=== PATIENT | female | born 1980 | race Asian ===

== ENCOUNTER 2025-01-27 15:40 | Emergency (ER) | payer OTHER ==
[~2025-01-27] VITALS: Ht 165.1 cm; Wt 63.5 kg
[2025-01-27 15:43] VITALS: BP 108/73; PULSE 94; RESP 18; TEMP 98.2
--- NOTE | 2025-01-27 17:10 | NUR ---
CALLED PT MULTIPLE TIMES IN LOBBY, NO ANSWER.
[2025-01-28] MEDS ORDERED: IBUP-1492 PO (00:39)
[2025-01-28] MEDS ORDERED: AMOX1TAB16 PO (00:39)
== END 2025-01-27 17:11 | disposition left against medical advice (07) ==
LOC: EDH 15:40
DX: R10.32 Left lower quadrant pain (principal); R50.9 Fever, unspecified; Z53.21 Procedure and treatment not carried out due to patient leaving prior to being seen by health care provider
CPT/HCPCS: 99281

== ENCOUNTER 2025-01-27 19:46 | Emergency (ER) | payer OTHER ==
[~2025-01-27] VITALS: Ht 165.1 cm; Wt 63.0 kg
--- NOTE | 2025-01-27 20:13 | NUR ---
PT CARE ASSUMED AT THIS TIME
[2025-01-27 20:28] LABS: APPEARANCE,URINE CLEAR (CLEAR); GLUCOSE, URINE (UA) NEGATIVE (NEGATIVE); LEUKOCYTE ESTERASE ,URINE NEGATIVE Leu/uL (NEGATIVE); NITRATE,URINE NEGATIVE (NEGATIVE); OCCULT BLOOD,URINE SMALL (NEGATIVE)
[2025-01-27 20:29] LABS: ADD UA MICROSCOPIC YES
[2025-01-27 20:33] LABS: IMMATURE GRANULOCYTE ABSOLUTE 0.04 K/uL (0-1); NUCLEATED RED BLOOD CELLS 0.0 % (0.0-0.19); PLATELET COUNT (AUTO) 308 K/uL (130-400); RED BLOOD CELL COUNT(AUTO) 3.99 MIL/uL (4.00-5.50); RED CELL DISTRIBUTION WIDTH 12.2 % (11.0-15.5); WHITE BLOOD COUNT (AUTO) 11.8 K/uL (4.8-10.8)
[2025-01-27 20:41] LABS: CREATININE 0.6 mg/dL (0.5-1.0); GLOMERULAR FILTR. RATE CALC 113.0 mL/min (>90); GLUCOSE,RANDOM 86.0 mg/dL (70-105); SODIUM SERUM 135.0 mmol/L (136-145); UREA NITROGEN, BLOOD 9.0 mg/dL (7-18)
--- NOTE | 2025-01-27 20:46 | NUR ---
PEGGY DEWEY NOTIFIED ABOUT PT'S REQUEST TO HOLD OFF ON CT SCAN FOR LAB RESULTS TO RESULT.
[2025-01-27] MEDS ORDERED: IOHEXOL-350 75 ML VIAL IV ONE (22:31)
--- NOTE | 2025-01-28 00:08 | HMCIMG ---
EXAM: CT Abdomen and Pelvis with IV contrast. CLINICAL HISTORY: Abdominal pain. TECHNIQUE: Axial computed tomography images of the abdomen and pelvis with intravenous contrast. COMPARISON: None provided. FINDINGS: LUNG BASES: The lung bases appear clear. No pleural effusions are seen. LIVER: Multiple well-defined hypodense cysts with diffuse distribution in both lobes of the liver, the largest measuring 0.7 x 0.7 cm in the segment of the liver GALLBLADDER AND BILE DUCTS: The gallbladder appears within normal limits. No radioopaque gallstones are seen. No biliary ductal dilatation is evident. PANCREAS: Unremarkable. SPLEEN: Unremarkable. ADRENAL GLANDS: Unremarkable. KIDNEYS, URETERS, AND BLADDER: The kidneys appear within normal limits. There is no hydronephrosis or hydroureter. No urinary calculi are seen. STOMACH AND BOWEL: Unremarkable appearance of the stomach. Colonic diverticulosis. Focal short segment enhancing wall thickening measuring 1.3 cm in wall thickness of the distal descending colon with mild surrounding fat stranding. APPENDIX: No evidence of acute appendicitis on CT examination. PERITONEUM: No free fluid. No free air. LYMPH NODES: No lymphadenopathy is evident. REPRODUCTIVE: Unremarkable as visualized. VASCULATURE: No evidence of abdominal aortic aneurysm. BONES: No aggressive appearing osseous lesion. No acute osseous pathology is evident. IMPRESSION: Focal short-segment enhancing wall thickening of the distal descending colon with peridiverticular fat stranding. Imaging features consistent with acute diverticulitis. However, underlying neoplastic etiology needs to be ruled out. Suggested clinical and scopy correlation. Colonic diverticulosis. Multiple small hepatic cysts. /[place]
[2025-01-28] MEDS ORDERED: IBUP-1492 PO (00:39)
[2025-01-28] MEDS ORDERED: AMOX1TAB16 PO (00:39)
--- NOTE | 2025-01-28 00:39 | ERN ---
ED Note History of Present Illness Stated Complaint: C/O ABD PAIN X 2 DAYS Chief Complaint: Abdominal Pain Time Seen by MD: 19:50 Dictation: 44-year-old female presents to ER complaints of left upper and lower abdominal pain x2 days. Patient states has mild nausea feels fatigued and malaise. Denies chest pain shortness of breath or fever Allergies: Coded Allergies: No Known Drug Allergies (Unverified Allergy, Unknown, 01/27/25) Home Meds Active Scripts Ibuprofen (Ibuprofen) 600 Mg Tablet, 600 MG PO Q6H PRN for PAIN, #20 TAB Prov:LENNY DEWEY [facility] 01/28/25 Amoxicillin/Potassium Clav (Amox Tr-K Clv 875-125 mg Tab) 875 Mg-125 Mg Tablet, 1 EACH PO BID for 10 Days, #20 TAB 0 Refills Prov:LENNY DEWEY [facility] 01/28/25 Past Medical History Past Medical History: No Pertinent History Additional Past Medical Hx: CHRONIC BACK PAIN Surgical History: None LMP: Jan 18, 2025 : 0 Review of System Dictation CONSTITUTIONAL: NEGATIVE FOR FEVER,CHILLS, AND WEIGHT LOSS EYES: NEGATIVE FOR INJURY, PAIN,REDNESS, AND DISCHARGE ENT: NEGATIVE FOR INJURY,PAIN OR SWELLING CARDIOVASCULAR: NEGATIVE FOR CHEST PAIN, PALPITATIONS, AND EDEMA RESPIRATORY: NEGATIVE FOR SHORTNESS OF BREATH, COUGH, WHEEZING, AND PLEURITIC CHEST PAIN ABDOMEN/GI: Positive abdominal pain, nausea BACK: NEGATIVE FOR PAIN OR INJURY : NEGATIVE FOR INJURY, BLEEDING AND DISCHARGE MS/EXTREMITY: NEGATIVE FOR INJURY AND DEFORMITY SKIN: NEGATIVE FOR RASH, AND DISCOLORATION NEURO: NEGATIVE FOR HEADACHE, WEAKNESS, NUMBNESS, TINGLING, AND SEIZURE PSYCH: NEGATIVE FOR SUICIDE IDEATION, HOMICIDAL IDEATION, AND HALLUCINATIONS ALLERGY/IMMUNOLOGY: NEGATIVE FOR HIVES, RASH, AND ALLERGIES ALL SYSTEMS NEGATIVE, EXCEPT NOTED ABOVE. 13 POINT REVIEW OF SYSTEMS ASSESSED AND ALL NEGATIVE EXCEPT FOR ABOVE. Initial Vital Sign VS Vital Signs Date Time Temp Pulse Resp B/P (MAP) Pulse Ox O2 Delivery O2 Flow Rate FiO2 01/27/25 19:48 99.0 88 20 166/77 100 Room Air 01/27/25 20:51 0 21 Physical Exam Dictation General: awake, alert, NAD Head/Face: Normocephalic, atraumatic Eyes: PERRL, EOMI, vision at baseline ENT: oral cavity clear, TMs clear, no signs of infection Neck: Trachea midline, supple, no nuchal rigidity Cardiovascular: RRR, normal no JVD Respiratory: CTAB, no respiratory distress, No rales or wheezes Abdomen: Soft, non-tender, non-distended, normal bowel sounds, positive guarding to left upper and lower abdominal quadrants Skin: Warm, dry, normal turgor, no rash MS/Extremity: Pulses equal, no cyanosis, neurovascular intact, FROM Neuro: COAx4, GCS 15, strength 5/5, CN 2-12 intact, normal cerebellar exam, normal gait, Psych: Normal behavior, mood, and affect normal Results (Laboratory/Radiology) Laboratory/Radiology Laboratory Tests Test 01/27/25 19:57 01/27/25 20:26 Urine Color COLORLESS (YELLOW) Urine Appearance CLEAR (CLEAR) Urine pH 7.0 (5.0-8.0) Urine Specific Moran 1.003 (1.001-1.031) Urine Protein NEGATIVE mg/dL (NEGATIVE) Urine Glucose (UA) NEGATIVE mg/dL (NEGATIVE) Urine Ketones NEGATIVE mg/dL (NEGATIVE) Urine Occult Blood SMALL (NEGATIVE) H Urine Nitrate NEGATIVE (NEGATIVE) Urine Bilirubin NEGATIVE mg/dL (NEGATIVE) Urine Urobilinogen 0.2 mg/dL (0.2-1.0) Urine Leukocyte Esterase NEGATIVE Jaimee/uL Urine RBC 0-1 /HPF (0-1) Urine WBC 0-1 /HPF (0-1) Urine Bacteria None /HPF (None Seen) Urine HCG, Qualitative NEGATIVE (NEGATIVE) White Blood Count 11.8 K/uL (4.8-10.8) H Red Blood Count 3.99 MIL/uL (4.00-5.50) L Hemoglobin 11.4 g/dL (12.0-16.0) L Hematocrit 35.2 % (36-48) L Mean Corpuscular Volume 88.2 fL (79-99) Mean Corpuscular Hemoglobin 28.6 pg (27.0-33.0) Mean Corpuscular Hemoglobin Concent 32.4 g/dL (32.0-36.0) Red Cell Distribution Width 12.2 % (11.0-15.5) Platelet Count 308 K/uL (130-400) Mean Platelet Volume 9.4 fL (7.5-10.5) Immature Granulocyte % (Auto) 0.3 % (0-1) Neutrophils (%) (Auto) 74.9 % (40.0-77.0) Lymphocytes (%) (Auto) 15.7 % (21.0-51.0) L Monocytes (%) (Auto) 8.1 % (3.0-13.0) Eosinophils (%) (Auto) 0.7 % (0.0-8.0) Basophils (%) (Auto) 0.3 % (0.0-5.0) Neutrophils # (Auto) 8.8 K/uL (1.8-7.7) H Lymphocytes # (Auto) 1.9 K/uL (1.0-4.8) Monocytes # (Auto) 1.0 K/uL (0.1-1.0) Eosinophils # (Auto) 0.08 K/uL (0.00-0.70) Basophils # (Auto) 0.03 K/uL (0.00-0.20) Absolute Immature Granulocyte (auto 0.04 K/uL (0-1) Nucleated Red Blood Cells 0.0 % (0.0-0.19) Sodium Level 135 mmol/L (136-145) L Potassium Level 3.5 mmol/L (3.5-5.1) Chloride Level 100 mmol/L (101-111) L Carbon Dioxide Level 27 mmol/L (21-32) Blood Urea Nitrogen 9 mg/dL (7-18) Creatinine 0.6 mg/dL (0.5-1.0) Glomerular Filtration Rate Calc 113 mL/min (>90) Random Glucose 86 mg/dL (70-105) Total Calcium 8.8 mg/dL (8.5-10.1) Amylase Level 87 U/L (25-115) Lipase 35 U/L (16-77) ED Course ED Course Orders Procedure Category Date Status Time Urinalysis Profile LAB 01/27/25 Complete 20:14 Cbc With Differential LAB 01/27/25 Complete 20:14 Basic Metabolic Panel LAB 01/27/25 Complete 20:14 ,Urine Test LAB 01/27/25 Complete 20:26 Ct Abdomen/Pelvis CT 01/27/25 Resulted W/Contrast 20:26 Amylase LAB 01/27/25 Complete 20:26 Lipase LAB 01/27/25 Complete 20:26 Iohexol (Omnipaque) PHA 01/27/25 Complete 22:31 Ketorolac PHA 01/28/25 Complete Tromethamine 15mg/Ml 01:00 Ketorolac PHA 01/28/25 Complete Tromethamine 15mg/Ml 01:03 Current Medications Medications (Trade) Dose Ordered Sig/Juancarlos Route PRN Reason Start Time Stop Time Status Last Admin Dose Admin Iohexol (Omnipaque) 75 ml STK-MED ONCE IV 01/27/25 22:31 01/27/25 22:32 DC Ketorolac Tromethamine (toRADol) 15 mg ONCE ONCE IV 01/28/25 01:00 01/28/25 01:08 DC Ketorolac Tromethamine (toRADol) 15 mg STK-MED ONCE .ROUTE 01/28/25 01:03 01/28/25 01:03 DC 01/28/25 01:06 Vital Signs Date Time Temp Pulse Resp B/P (MAP) Pulse Ox O2 Delivery O2 Flow Rate FiO2 01/28/25 00:39 98 15 104/53 100 Room Air* 0 21 01/27/25 21:55 71 16 109/75 100 Room Air* 0 21 01/27/25 20:51 97.9 70 16 113/73 100 Room Air* 0 21 01/27/25 19:48 99.0 88 20 166/77 100 Room Air Medical Decision Making MDM MDM: Differential diagnosis: Diverticulitis, ovarian cysts, gastritis gastro enteritis Rationale: Tests considered and ordered secondary to shared decision making include: labs, ECG and radiology Previous outside records reviewed: Old ER visits. Risk of complication and/or morbidity or mortality of patient management: None Medications-Per medication reconciliation Need for hospitalization: Patient does NOT meet criteria for hospitalization. Need for emergency major/minor surgery: No There are no social concerns with this patient. Prescription drug management Prescriptions will include symptomatic care Patient's prior external medical records from other ER visits were reviewed by me as indicated. Prior testing and results from previous visits were reviewed. Prior tests were taken into account with medical decision making and resource utilization, independent historian/historians were used to obtain complete medical history. I independently interpreted the test that were performed, results were reviewed by me and considered findings on radiology if ordered. CT confirms acute diverticulitis. Patient will be discharged with antibiotics for treatment. Advised to follow up with GI. DX & DISP Disposition: Discharge Departure Impression: Primary Impression: Diverticulitis Additional Impression: Abdominal pain Condition: Stable Scripts Ibuprofen (Ibuprofen) 600 Mg Tablet 600 MG PO Q6H PRN for PAIN, #20 TAB Prov: LENNY DEWEY 01/28/25 Amoxicillin/Potassium Clav (Amox Tr-K Clv 875-125 mg Tab) 875 Mg-125 Mg Tablet 1 EACH PO BID for 10 Days, #20 TAB 0 Refills Prov: LENNY DEWEY 01/28/25 Additional Instructions: FOLLOW-UP WITH YOUR PCP IN 24-72 HOURS AND IN THE EVENT IF SYMPTOMS WORSEN OR AN EMERGENCY OVERNIGHT REPORT TO THE ED IMMEDIATELY Referrals: JOSE SALDANA MD (PCP) LENNY DEWEY Jan 28, 2025 00:39
[2025-01-28 01:16] VITALS: BP 101/62; PULSE 80; RESP 16; TEMP 97.9; O2SAT 100
== END 2025-01-28 01:29 | disposition home or self-care (01) ==
LOC: EDH 19:46
DX: K57.32 Diverticulitis of large intestine without perforation or abscess without bleeding (principal); G89.29 Other chronic pain; M54.9 Dorsalgia, unspecified; Z79.899 Other long term (current) drug therapy
CPT/HCPCS: 99285; 74177; 82150; 80048; 83690; 85025; 81001; 81025; 36415; 96374; Q9967; J1885